=== PATIENT | female | born 1970 | race Hispanic/Latino ===

== ENCOUNTER 2019-01-31 10:55 | Emergency (ER) | payer OTHER, BC ==
[2019-01-31 11:06] VITALS: BP 149/70
--- NOTE | 2019-01-31 12:08 | Emergency Department Report ---
ED General Adult HPI - General Chief complaint: Extremity Injury, Lower Stated complaint: BOTH LEGS/ARMS RESTLESS Time Seen by Provider: 01/31/19 11:44 Source: patient Mode of arrival: Ambulatory Limitations: No Limitations - History of Present Illness Initial comments: Patient is a 48-year-old female that presents emergency with complaints of insomnia and restless leg syndrome. Patient states that she is visiting here from [place] and prior to leaving [place] she was recently started on clonazepam 0.5 mg for sleep but is not working. Patient states she has a long history of restless leg syndrome and she has medications for that. Patient states that her restless leg syndrome medications are working but she still having insomnia. Patient was not sure what to do with clonazepam since it is such a new medication so she came to the emergency room for assistance. Patient states she's here for another 5 days and she has an appointment with a neurologist next week. Patient denies chest pain or shortness of breath. Patient denies abdominal pain. Patient denies any physical complaints except for being fatigued and not able to sleep. -: Gradual Severity scale (0 -10): 0 Consistency: constant Improves with: none Worsens with: none Associated Symptoms: denies other symptoms. denies: confusion, chest pain, cough, diaphoresis, fever/chills, headaches, loss of appetite, nausea/vomiting, rash, seizure, shortness of breath, syncope, weakness Treatments Prior to Arrival: none - Related Data Home Medications Medication Instructions Recorded Confirmed Last Taken Aspirin [Adult Low Dose Aspirin EC] 81 mg PO DAILY 01/31/19 01/31/19 Unknown Empagliflozin/Metformin HCl 1 each PO DAILY 01/31/19 01/31/19 Unknown [Synjardy 12.5-1,000 mg Tablet] FLUoxetine HCL [Fluoxetine HCl] 40 mg PO DAILY 01/31/19 01/31/19 Unknown Gabapentin Enacarbil [Horizant] 600 mg PO DAILY 01/31/19 01/31/19 Unknown Losartan [Cozaar] 100 mg PO QDAY 01/31/19 01/31/19 Unknown Pantoprazole [Protonix] 40 mg PO QDAY 01/31/19 01/31/19 Unknown Pramipexole Di-HCl [Mirapex] 0.5 mg PO DAILY 01/31/19 01/31/19 Unknown Rosuvastatin (Nf) [Crestor] 20 mg PO QHS 01/31/19 01/31/19 Unknown Sitagliptin Phosphate [Januvia] 100 mg PO DAILY 01/31/19 01/31/19 Unknown clonazePAM [ Klonopin] 0.5 mg PO BID PRN 01/31/19 01/31/19 Unknown glipiZIDE [Glipizide] 2 mg PO DAILY 01/31/19 01/31/19 Unknown Previous Rx's Medication Instructions Recorded Last Taken Type Diazepam [Valium] 5 mg PO QHS PRN #5 tablet 01/31/19 Unknown Rx Allergies Allergy/AdvReac Type Severity Reaction Status Date / Time acetaminophen [From Percocet] Allergy Hives Verified 01/31/19 10:57 morphine Allergy Hives Verified 01/31/19 10:57 oxycodone [From Percocet] Allergy Hives Verified 01/31/19 10:57 ED Review of Systems ROS: Stated complaint: BOTH LEGS/ARMS RESTLESS Other details as noted in HPI Constitutional: denies: chills, fever Eyes: denies: eye pain, eye discharge, vision change ENT: denies: ear pain, throat pain Respiratory: denies: cough, shortness of breath, wheezing Cardiovascular: denies: chest pain, palpitations Endocrine: no symptoms reported Gastrointestinal: denies: abdominal pain, nausea, diarrhea Genitourinary: denies: urgency, dysuria, discharge Musculoskeletal: denies: back pain, joint swelling, arthralgia Skin: denies: rash, lesions Neurological: denies: headache, weakness, paresthesias Psychiatric: denies: anxiety, depression Hematological/Lymphatic: denies: easy bleeding, easy bruising ED Past Medical Hx - Past Medical History Previous Medical History?: Yes Hx Hypertension: Yes Hx Diabetes: Yes Hx Psychiatric Treatment: Yes (depression) Additional medical history: restless legs, elevated cholesterol - Surgical History Past Surgical History?: Yes Hx Appendectomy: Yes Additional Surgical History: back surgery,hysterectomy - Family History Family history: no significant - Social History Smoking Status: Current Every Day Smoker Substance Use Type: None - Medications Home Medications: Home Medications Medication Instructions Recorded Confirmed Last Taken Type Aspirin [Adult Low Dose Aspirin EC] 81 mg PO DAILY 01/31/19 01/31/19 Unknown History Diazepam [Valium] 5 mg PO QHS PRN #5 tablet 01/31/19 Unknown Rx Empagliflozin/Metformin HCl 1 each PO DAILY 01/31/19 01/31/19 Unknown History [Synjardy 12.5-1,000 mg Tablet] FLUoxetine HCL [Fluoxetine HCl] 40 mg PO DAILY 01/31/19 01/31/19 Unknown History Gabapentin Enacarbil [Horizant] 600 mg PO DAILY 01/31/19 01/31/19 Unknown History Losartan [Cozaar] 100 mg PO QDAY 01/31/19 01/31/19 Unknown History Pantoprazole [Protonix] 40 mg PO QDAY 01/31/19 01/31/19 Unknown History Pramipexole Di-HCl [Mirapex] 0.5 mg PO DAILY 01/31/19 01/31/19 Unknown History Rosuvastatin (Nf) [Crestor] 20 mg PO QHS 01/31/19 01/31/19 Unknown History Sitagliptin Phosphate [Januvia] 100 mg PO DAILY 01/31/19 01/31/19 Unknown History clonazePAM [ Klonopin] 0.5 mg PO BID PRN 01/31/19 01/31/19 Unknown History glipiZIDE [Glipizide] 2 mg PO DAILY 01/31/19 01/31/19 Unknown History ED Physical Exam - General Limitations: No Limitations General appearance: alert, in no apparent distress - Head Head exam: Present: atraumatic, normocephalic - Eye Eye exam: Present: normal appearance - ENT ENT exam: Present: mucous membranes moist - Neck Neck exam: Present: normal inspection - Respiratory Respiratory exam: Present: normal lung sounds bilaterally. Absent: respiratory distress - Cardiovascular Cardiovascular Exam: Present: regular rate, normal rhythm. Absent: systolic murmur, diastolic murmur, rubs, gallop - GI/Abdominal GI/Abdominal exam: Present: soft, normal bowel sounds. Absent: distended, tenderness, guarding - Extremities Exam Extremities exam: Present: normal inspection, full ROM, normal capillary refill. Absent: tenderness, pedal edema, joint swelling, calf tenderness - Back Exam Back exam: Present: normal inspection, full ROM - Neurological Exam Neurological exam: Present: alert, oriented X3 - Psychiatric Psychiatric exam: Present: normal affect, normal mood - Skin Skin exam: Present: warm, dry, intact, normal color. Absent: rash ED Course Vital Signs 01/31/19 11:02 Temperature 97.8 F Pulse Rate 93 H Respiratory 20 Rate Blood Pressure 149/70 O2 Sat by Pulse 96 Oximetry - Reevaluation(s) Reevaluation #1: Initial exam done. I discussed with patient the emergency room is not an appropriate place for med management however I will give the patient a prescription for Valium 5 mg to be used at night and patient can follow-up with her primary care and her neurologist here. Patient agrees with this plan of care. Patient is stable for discharge. Patient we discharged home. Patient given discharge instructions. Patient and family member voiced understanding of discharge instructions. 01/31/19 12:07 ED Medical Decision Making - Medical Decision Making Patient is a 48-year-old female that presents emergency room for med management and assistance with insomnia. Patient will be given a prescription for Valium. Patient instructed to hold clonazepam while taking Valium. Patient at this time does not require any other diagnostic studies or laboratories. Patient is not having a emergency medical condition. Critical care attestation.: If time is entered above; I have spent that time in minutes in the direct care of this critically ill patient, excluding procedure time. ED Disposition Clinical Impression: Restless leg syndrome Insomnia Qualifiers: Insomnia type: unspecified Qualified Code(s): G47.00 - Insomnia, unspecified Disposition: DC- TO HOME OR SELFCARE Is pt being admited?: No Does the pt Need Aspirin: No Condition: Stable Instructions: Insomnia (ED) Additional Instructions: Patient to follow-up with primary care 2-3 days. Patient to return to ER if condition worsens. Patient to follow-up with neurologist in 2-3 days. Patient to take meds as directed. Patient to increase water. Patient to rest. Prescriptions: Diazepam [Valium] 5 mg PO QHS PRN #5 tablet PRN Reason: Sleep Referrals: JOSE M INGRAM MD [Primary Care Provider] - 2-3 Days ALEXANDRA WU MD [Staff Physician] - 2-3 Days Time of Disposition: 12:10
== END 2019-01-31 12:25 | disposition home or self-care (01) ==
LOC: ED 10:55
DX: G25.81 Restless legs syndrome (principal); I10 Essential (primary) hypertension; E11.9 Type 2 diabetes mellitus without complications; E78.00 Pure hypercholesterolemia, unspecified; F32.9 Major depressive disorder, single episode, unspecified; F17.200 Nicotine dependence, unspecified, uncomplicated; Z90.710 Acquired absence of both cervix and uterus; Z90.49 Acquired absence of other specified parts of digestive tract; Z88.6 Allergy status to analgesic agent; Z88.4 Allergy status to anesthetic agent
CPT/HCPCS: 99282